=== PATIENT | female | born 2000 | race Caucasian/White ===

== ENCOUNTER → 2020-03-15 | Outpatient (CLI) | payer SELFPAY | END | disposition home or self-care (01) | LOC: ECT 11:08 | DX: F33.2 Major depressive disorder, recurrent severe without psychotic features (principal); Z91.5 Personal history of self-harm; Z81.8 Family history of other mental and behavioral disorders; F41.9 Anxiety disorder, unspecified; Z79.899 Other long term (current) drug therapy ==

== ENCOUNTER 2020-03-29 05:25 | Outpatient (RCR) | payer SELFPAY ==
[~2020-03-29] VITALS: Ht 162.6 cm; Wt 54.4 kg
[2020-03-29] MEDS ORDERED: Methohexital Sodium Syr 100mg/10ml IVP ONE ×3 (05:26)
[2020-03-29] MEDS ORDERED: Midazolam 2mg/2ml Inj ONE ×3 (05:26)
[2020-03-29] MEDS ORDERED: NS 500ML ONE ×3 (05:26)
[2020-03-29] MEDS ORDERED: Ketorolac 60mg Inj IM ONE ×2 (05:26)
[2020-03-29] MEDS ORDERED: Succinylcholine 20mg/ml 10ml vial ONE ×3 (05:26)
[2020-03-29 08:15] VITALS: BP 107/67
[2020-03-29 09:04] VITALS: BP 109/66
[2020-03-29] MEDS ORDERED: Midazolam 2mg/2ml Inj IVP PRN (09:24)
[2020-03-29] MEDS ORDERED: Atropine Sulfate 0.4mg/ml inj IVP PRN (09:24)
[2020-03-29] MEDS ORDERED: Lidocaine 2% 100mg/5ml Carp IV PRN (09:24)
[2020-03-29 09:29] VITALS: BP 147/56
[2020-03-29 09:34] VITALS: BP 135/78
[2020-03-29 09:39] VITALS: BP 114/81
[2020-03-29 09:44] VITALS: BP 91/64
[2020-03-31 08:57] VITALS: BP 110/68
[2020-03-31] MEDS ORDERED: Methohexital Sodium Syr 100mg/10ml IVP ONE (09:00)
[2020-03-31] MEDS ORDERED: Ketorolac 60mg Inj IM ONE (09:00)
[2020-03-31] MEDS ORDERED: NS 500ML ONE (09:00)
[2020-03-31] MEDS ORDERED: Midazolam 2mg/2ml Inj ONE (09:00)
[2020-03-31] MEDS ORDERED: Succinylcholine 20mg/ml 10ml vial ONE (09:00)
[2020-03-31 09:10] VITALS: BP 113/61
[2020-03-31 09:15] VITALS: BP 115/62
[2020-03-31 09:20] VITALS: BP 110/58
[2020-03-31 09:25] VITALS: BP 108/55
[2020-04-03 08:32] VITALS: BP 105/66
[2020-04-03 08:49] VITALS: BP 154/92
[2020-04-03 08:54] VITALS: BP 125/65
[2020-04-03 08:59] VITALS: BP 112/64
[2020-04-03 09:04] VITALS: BP 109/58
[2020-04-05] MEDS ORDERED: NS 500ML ONE (09:00)
[2020-04-05] MEDS ORDERED: Ketorolac 60mg Inj IM ONE (09:00)
[2020-04-05] MEDS ORDERED: Succinylcholine 20mg/ml 10ml vial ONE (09:00)
[2020-04-05] MEDS ORDERED: Methohexital Sodium Syr 100mg/10ml IVP ONE (09:00)
[2020-04-05] MEDS ORDERED: Midazolam 2mg/2ml Inj ONE (09:00)
[2020-04-05 09:18] VITALS: BP 103/60
[2020-04-05] MEDS ORDERED: Atropine Sulfate 0.4mg/ml inj IVP PRN (09:39)
[2020-04-05] MEDS ORDERED: Lidocaine 2% 100mg/5ml Carp IV PRN (09:39)
[2020-04-05 09:40] VITALS: BP 128/70
[2020-04-05 09:45] VITALS: BP 120/70
[2020-04-05 09:50] VITALS: BP 123/63
[2020-04-05 09:55] VITALS: BP 119/59
[2020-04-07 08:53] VITALS: BP 108/59
[2020-04-07 09:06] VITALS: BP 103/72
[2020-04-07 09:11] VITALS: BP 134/64
[2020-04-07 09:16] VITALS: BP 128/57
[2020-04-07 09:21] VITALS: BP_SYST 128; BP_SYST 131; BP_DIAS 57; BP_DIAS 65
[2020-04-12] MEDS ORDERED: Labetalol 5mg/ml 20ml vial IV ONE (09:00)
[2020-04-12] MEDS ORDERED: Methohexital Sodium Syr 100mg/10ml IVP ONE (09:00)
[2020-04-12] MEDS ORDERED: NS 500ML ONE (09:00)
[2020-04-12] MEDS ORDERED: Succinylcholine 20mg/ml 10ml vial ONE (09:00)
[2020-04-12] MEDS ORDERED: Midazolam 2mg/2ml Inj ONE (09:00)
[2020-04-12 09:29] VITALS: BP 113/84
[2020-04-12 09:49] VITALS: BP 140/65
[2020-04-12] MEDS ORDERED: Lidocaine 2% 100mg/5ml Carp IV PRN (09:49)
[2020-04-12] MEDS ORDERED: Midazolam 2mg/2ml Inj IV ONE (09:49)
[2020-04-12] MEDS ORDERED: Atropine Sulfate 0.4mg/ml inj IVP PRN (09:49)
[2020-04-12 09:54] VITALS: BP 181/50
[2020-04-12 09:59] VITALS: BP 202/132
[2020-04-12 10:04] VITALS: BP 195/148
[2020-04-14] MEDS ORDERED: Succinylcholine 20mg/ml 10ml vial ONE (07:00)
[2020-04-14] MEDS ORDERED: NS 500ML ONE (07:00)
[2020-04-14] MEDS ORDERED: Midazolam 2mg/2ml Inj ONE (07:00)
[2020-04-14] MEDS ORDERED: Ketorolac 60mg Inj IM ONE (07:00)
[2020-04-14] MEDS ORDERED: Methohexital Sodium Syr 100mg/10ml IVP ONE (07:00)
[2020-04-14 09:36] VITALS: BP 122/73
[2020-04-14 09:49] VITALS: BP 142/81
[2020-04-14 09:54] VITALS: BP 122/69
[2020-04-14 09:59] VITALS: BP 117/71
[2020-04-14 10:04] VITALS: BP 117/69
== END 2020-04-16 | disposition home or self-care (01) ==
LOC: ECT 05:25
DX: F33.2 Major depressive disorder, recurrent severe without psychotic features (principal)
CPT/HCPCS: 90870; J0330; J2250; J3360; J7040

== ENCOUNTER 2020-04-17 05:25 | Outpatient (RCR) | payer SELFPAY ==
[~2020-04-17] VITALS: Ht 162.6 cm; Wt 54.4 kg
[2020-04-17] MEDS ORDERED: Methohexital Sodium Syr 100mg/10ml IVP ONE ×2 (05:26→06:00)
[2020-04-17] MEDS ORDERED: NS 500ML ONE ×2 (05:26→06:00)
[2020-04-17] MEDS ORDERED: Ketorolac 60mg Inj IM ONE (05:26)
[2020-04-17] MEDS ORDERED: Succinylcholine 20mg/ml 10ml vial ONE ×2 (05:26→06:00)
[2020-04-17] MEDS ORDERED: LORazepam Inj 2mg/ml 1ml ONE (05:26)
[2020-04-17] MEDS ORDERED: Ketorolac 30mg Inj ONE (06:00)
[2020-04-17] MEDS ORDERED: Midazolam 2mg/2ml Inj ONE (06:00)
[2020-04-17 09:21] VITALS: BP 111/66
[2020-04-17] MEDS ORDERED: Atropine Sulfate 0.4mg/ml inj IVP PRN (09:39)
[2020-04-17] MEDS ORDERED: Lidocaine 2% 100mg/5ml Carp IV PRN (09:39)
[2020-04-17 09:40] VITALS: BP 112/57
[2020-04-17 09:45] VITALS: BP 114/50
[2020-04-17 09:50] VITALS: BP 96/51
[2020-04-17 09:55] VITALS: BP 103/54
[2020-04-21] MEDS ORDERED: Succinylcholine 20mg/ml 10ml vial ONE (06:00)
[2020-04-21] MEDS ORDERED: Methohexital Sodium Syr 100mg/10ml IVP ONE (06:00)
[2020-04-21] MEDS ORDERED: NS 500ML ONE (06:00)
[2020-04-21] MEDS ORDERED: Midazolam 2mg/2ml Inj ONE (06:00)
[2020-04-21] MEDS ORDERED: Ketorolac 30mg Inj ONE (06:00)
[2020-04-21 08:43] VITALS: BP 123/62
[2020-04-21 08:48] VITALS: BP 115/61
[2020-04-21 08:53] VITALS: BP 119/64
[2020-04-21 08:58] VITALS: BP 119/58
[2020-04-21 09:43] VITALS: BP 107/54
[2020-04-26] MEDS ORDERED: Succinylcholine 20mg/ml 10ml vial ONE (06:00)
[2020-04-26] MEDS ORDERED: Midazolam 2mg/2ml Inj ONE (06:00)
[2020-04-26] MEDS ORDERED: Ketorolac 30mg Inj ONE (06:00)
[2020-04-26] MEDS ORDERED: Methohexital Sodium Syr 100mg/10ml IVP ONE (06:00)
[2020-04-26] MEDS ORDERED: NS 500ML ONE (06:00)
[2020-04-26 09:02] VITALS: BP 118/74
[2020-04-26] MEDS ORDERED: Atropine Sulfate 0.4mg/ml inj IVP PRN (09:24)
[2020-04-26] MEDS ORDERED: Lidocaine 2% 100mg/5ml Carp IV PRN (09:24)
[2020-04-26 09:25] VITALS: BP 222/180
[2020-04-26 09:30] VITALS: BP 142/72
[2020-04-26 09:35] VITALS: BP 123/81
[2020-04-26 09:40] VITALS: BP 122/64
[2020-05-01 08:19] VITALS: BP 118/74
[2020-05-01 08:32] VITALS: BP 143/104
[2020-05-01 08:37] VITALS: BP 141/80
[2020-05-01 08:42] VITALS: BP 130/82
[2020-05-01 08:47] VITALS: BP 123/70
[2020-05-08] MEDS ORDERED: Methohexital Sodium Syr 100mg/10ml IVP ONE (06:00)
[2020-05-08] MEDS ORDERED: Succinylcholine 20mg/ml 10ml vial ONE (06:00)
[2020-05-08] MEDS ORDERED: LORazepam Inj 2mg/ml 1ml ONE (06:00)
[2020-05-08] MEDS ORDERED: Ketorolac 60mg Inj IM ONE (06:00)
[2020-05-08] MEDS ORDERED: NS 500ML ONE (06:00)
[2020-05-08 08:24] VITALS: BP 131/75
[2020-05-08] MEDS ORDERED: Lidocaine 2% 100mg/5ml Carp IV PRN (08:39)
[2020-05-08] MEDS ORDERED: Atropine Sulfate 0.4mg/ml inj IVP PRN (08:39)
[2020-05-08 08:40] VITALS: BP 135/54
[2020-05-08 08:45] VITALS: BP 137/49
[2020-05-08 08:50] VITALS: BP 126/56
[2020-05-08 08:55] VITALS: BP 124/62
== END 2020-05-16 | disposition home or self-care (01) ==
LOC: ECT 05:25
DX: F33.2 Major depressive disorder, recurrent severe without psychotic features (principal)
CPT/HCPCS: 90870; J0330; J1885; J2250; J7040

== ENCOUNTER 2020-05-17 08:36 | Outpatient (RCR) | payer SELFPAY ==
[~2020-05-17] VITALS: Ht 162.6 cm; Wt 54.4 kg
[2020-05-17] MEDS ORDERED: Methohexital Sodium Syr 100mg/10ml IVP ONE (08:37)
[2020-05-17] MEDS ORDERED: Ketorolac 30mg Inj ONE (08:37)
[2020-05-17] MEDS ORDERED: NS 500ML ONE (08:37)
[2020-05-17] MEDS ORDERED: Succinylcholine 20mg/ml 10ml vial ONE (08:37)
[2020-05-17] MEDS ORDERED: LORazepam Inj 2mg/ml 1ml ONE (08:37)
[2020-05-17 09:56] VITALS: BP 111/71
[2020-05-17 10:09] VITALS: BP 155/46
[2020-05-17 10:14] VITALS: BP 151/51
[2020-05-17 10:19] VITALS: BP 132/55
[2020-05-17 10:24] VITALS: BP 108/51
[2020-06-05] MEDS ORDERED: Methohexital Sodium Syr 100mg/10ml IVP ONE (06:00)
[2020-06-05] MEDS ORDERED: Ketorolac 60mg Inj IM ONE (06:00)
[2020-06-05] MEDS ORDERED: Midazolam 2mg/2ml Inj ONE (06:00)
[2020-06-05] MEDS ORDERED: NS 500ML ONE (06:00)
[2020-06-05] MEDS ORDERED: Succinylcholine 20mg/ml 10ml vial ONE (06:00)
[2020-06-05 09:09] VITALS: BP 113/67
[2020-06-05 09:20] VITALS: BP 140/87
[2020-06-05 09:25] VITALS: BP 117/58
[2020-06-05 09:30] VITALS: BP 113/65
[2020-06-05 09:35] VITALS: BP 122/70
== END 2020-06-16 | disposition home or self-care (01) ==
LOC: ECT 08:36
DX: F33.2 Major depressive disorder, recurrent severe without psychotic features (principal)
CPT/HCPCS: 90870; J0330; J1885; J2250; J7040

== ENCOUNTER 2020-07-21 08:18 | Outpatient (RCR) | payer SELFPAY ==
[2020-07-21] VITALS (7 sets, daily range): BP systolic 108–146; BP diastolic 55–79
[~2020-07-21] VITALS: Ht 162.6 cm; Wt 54.4 kg
[2020-07-21] MEDS ORDERED: NS 500ML ONE (08:19)
[2020-07-21] MEDS ORDERED: Methohexita Syr 100mg/10ml IVP ONE (08:19)
[2020-07-21] MEDS ORDERED: Succinylcholine 20mg/ml 10ml vial ONE (08:19)
[2020-07-21] MEDS ORDERED: Ketorolac 30mg Inj ONE (08:19)
[2020-07-21] MEDS ORDERED: Midazolam 2mg/2ml Inj ONE (08:19)
== END 2020-08-16 | disposition home or self-care (01) ==
LOC: ECT 08:18
DX: F33.2 Major depressive disorder, recurrent severe without psychotic features (principal)
CPT/HCPCS: 90870; J0330; J1885; J2250; J7040

== ENCOUNTER 2020-08-18 05:06 | Outpatient (RCR) | payer SELFPAY ==
[~2020-08-18] VITALS: Ht 30.5 cm; Wt 0.5 kg
[2020-08-18] VITALS (7 sets, daily range): BP systolic 117–157; BP diastolic 52–75
[2020-08-18] MEDS ORDERED: Succinylcholine 20mg/ml 10ml vial ONE (05:07)
[2020-08-18] MEDS ORDERED: Midazolam 2mg/2ml Inj ONE (05:07)
[2020-08-18] MEDS ORDERED: Ketorolac 60mg Inj IM ONE (05:07)
[2020-08-18] MEDS ORDERED: Methohexital Sodium Syr 100mg/10ml IVP ONE (05:07)
[2020-08-18] MEDS ORDERED: NS 500ML ONE (05:07)
[2020-09-15] VITALS (7 sets, daily range): BP systolic 110–153; BP diastolic 55–75
[2020-09-15] MEDS ORDERED: Methohexital Sodium Syr 100mg/10ml IVP ONE (06:00)
[2020-09-15] MEDS ORDERED: Ketorolac 30mg Inj ONE (06:00)
[2020-09-15] MEDS ORDERED: Succinylcholine 20mg/ml 10ml vial ONE (06:00)
[2020-09-15] MEDS ORDERED: Midazolam 2mg/2ml Inj ONE (06:00)
[2020-09-15] MEDS ORDERED: NS 500ML ONE (06:00)
== END 2020-09-16 | disposition home or self-care (01) ==
LOC: ECT 05:06
DX: F33.2 Major depressive disorder, recurrent severe without psychotic features (principal)
CPT/HCPCS: 90870; J0330; J1885; J2250; J7040

== ENCOUNTER 2020-10-11 04:30 | Outpatient (RCR) | payer SELFPAY ==
[2020-10-11] VITALS (7 sets, daily range): BP systolic 104–152; BP diastolic 38–84
[~2020-10-11] VITALS: Ht 162.6 cm; Wt 54.4 kg
[2020-10-11] MEDS ORDERED: Succinylcholine 20mg/ml 10ml vial ONE (04:31)
[2020-10-11] MEDS ORDERED: NS 500ML ONE (04:31)
[2020-10-11] MEDS ORDERED: Methohexita Syr 100mg/10ml IVP ONE (04:31)
[2020-10-11] MEDS ORDERED: Ketorolac 60mg Inj IM ONE (04:31)
[2020-10-11] MEDS ORDERED: Midazolam 2mg/2ml Inj ONE (04:31)
[2020-10-11] MEDS ORDERED: Atropine Sulfate 0.4mg/ml inj IVP PRN (08:59)
== END 2020-10-16 | disposition home or self-care (01) ==
LOC: ECT 04:30
DX: F33.2 Major depressive disorder, recurrent severe without psychotic features (principal)
CPT/HCPCS: 90870; J0330; J2250; J7040

== ENCOUNTER 2020-11-08 05:55 | Outpatient (RCR) | payer SELFPAY ==
[2020-11-08] VITALS (7 sets, daily range): BP systolic 105–151; BP diastolic 49–87
[~2020-11-08] VITALS: Ht 162.6 cm; Wt 54.4 kg
[2020-11-08] MEDS ORDERED: NS 500ML ONE (05:56)
[2020-11-08] MEDS ORDERED: Midazolam 2mg/2ml Inj ONE (05:56)
[2020-11-08] MEDS ORDERED: Succinylcholine 20mg/ml 10ml vial ONE (05:56)
[2020-11-08] MEDS ORDERED: Methohexita Syr 100mg/10ml IVP ONE (05:56)
[2020-11-08] MEDS ORDERED: Ketorolac 60mg Inj IM ONE (05:56)
== END 2020-11-16 | disposition home or self-care (01) ==
LOC: ECT 05:55
DX: F33.2 Major depressive disorder, recurrent severe without psychotic features (principal)
CPT/HCPCS: 90870; J0330; J2250; J7040

== ENCOUNTER 2020-12-04 05:40 | Outpatient (RCR) | payer SELFPAY ==
[~2020-12-04] VITALS: Ht 30.5 cm; Wt 0.5 kg
[2020-12-04] VITALS (7 sets, daily range): BP systolic 115–148; BP diastolic 51–100
[2020-12-04] MEDS ORDERED: Midazolam 2mg/2ml Inj ONE (05:41)
[2020-12-04] MEDS ORDERED: Succinylcholine 20mg/ml 10ml vial ONE (05:41)
[2020-12-04] MEDS ORDERED: Methohexita Syr 100mg/10ml IVP ONE (05:41)
[2020-12-04] MEDS ORDERED: Ketorolac 60mg Inj IM ONE (05:41)
[2020-12-04] MEDS ORDERED: Lidocaine 2% 100mg/5ml Carp IV PRN (09:14)
[2020-12-04] MEDS ORDERED: Atropine Sulfate 0.4mg/ml inj IVP PRN (09:14)
== END 2020-12-17 | disposition home or self-care (01) ==
LOC: ECT 05:40
DX: F33.2 Major depressive disorder, recurrent severe without psychotic features (principal)
CPT/HCPCS: 90870; J0330; J2250